=== PATIENT | male | born 1985 | race Caucasian/White ===

== ENCOUNTER 2025-01-21 10:41 | Emergency (ER) | payer OTHER, SELFPAY ==
[2025-01-21 10:45] VITALS: BP 133/92; PULSE 92; RESP 16; TEMP 36.4; O2SAT 98
--- OUTSIDE RECORDS SUMMARY | 2025-01-21 10:45 | XMS_ITS | Clinical Summary ---
Author Organization [facility] [address] [place] [id number] Care Team Providers Care Milker Machine Name Role Phone Bret Trammell DO Primary Care Provider [phone] Allergies Active Allergy Reactions Criticality Noted Date Comments Sulfa Sweating,Vomiting Low 12/30/2024 Medications ondansetron (ZOFRAN) 4 mg tablet Take 1 tablet (4 mg total) by mouth every 6 (six) hours 12 tablet 12/30/2024 Active senna-docusate (PERICOLACE) 8.6-50 mg Take 1 tablet by mouth daily 20 tablet 12/30/2024 Active polyethylene glycol (MIRALAX) 17 gram/dose bulk powder Take 17 g by mouth daily 238 g 12/30/2024 Active Encounters Date Type Department Care Team Description 12/30/2024 5:04 PM CDT - 12/30/2024 7:14 PM CDT Emergency [address] [address] Constipation, unspecified constipation type (Primary Dx) Discharge Disposition: Discharge to home or self care from Last 3 Months Social History Tobacco Use Types Packs/Day Years Used Date Smoking Tobacco: Never Assessed Personal Safety Answer Date Recorded Have you ever been in or are you currently in a harmful physical or emotional relationship or is someone making you feel afraid or unsafe? 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 Height 175.3 cm (5' 9) 12/30/2024 12:40 PM CDT Body Mass Index 20.67 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 Plan of Treatment Health Maintenance Due Date Last Done Comments Depression Screening 1985 Hepatitis C Screening 1985 DTaP/Tdap/Td Vaccine (1 - Tdap) 10/26/1994 Varicella Vaccines (1 of 2 - 13+ 2-dose series) 10/26/1996 Hepatitis B Screening 10/26/2001 Regular Well Visit/Exam 18-64 10/26/2001 Pneumococcal vaccine <65 (1 of 2 - PCV) 10/26/2002 Influenza Vaccine (Season Ended) 2025 HPV Vaccines Aged Out No longer eligi ble based on patient's age to complete this topic Procedures Procedure Name Priority Date/Time Associated Diagnosis Comments CT ABDOMEN PELVIS W CONTRAST ED 12/30/2024 2:30 PM CDT EGFR STAT 12/30/2024 1:13 PM CDT DIFFERENTIAL AUTO STAT 12/30/2024 1:1 3 PM CDT LIPASE STAT 12/30/2024 1:13 PM CDT COMPREHENSIVE METABOLIC PANEL STAT 12/30/2024 1:13 PM CDT CBC WITH AUTO DIFFERENTIAL STAT 12/30/2024 1:13 PM CDT from Last 3 Months Results * CT Abdomen Pelvis W Contrast (12/30/2024 2:30 PM CDT) Anatomical Region Laterality Modality Body N/A Computed Tomogra phy 12/30/2024 3:43 PM CDT Narrative 12/30/2024 4:00 PM CDT EXAM DESCRIPTION: CT ABDOMEN PELVIS W CONTRAST REASON FOR STUDY: Abdominal pain and bloating abdomen pain and bloating. Pt states his abdomen has been getting more distended. Last BM evening. No prior surgery TECHNIQUE: CT scan of the abdomen and pelvis performed with intravenous and without oral contrast using helical scanning technique with dynamic intravenous contrast injection. Reconstructed coronal and sagittal MPR images reviewed. All images stored on PACS. Automated exposure control was used as a dose optimization technique for this examination. CONTRAST TYPE/DOSE: 100mL of IOVERSOL 350 MG IODINE/ML INTRAVENOUS SYRINGE injected via intravenous COMPARISON: None available. FINDINGS: LOWER CHEST: No significant pulmonary abnormalities. No effusion. LIVER: Normal size. No identified cystic or solid masses. GALLBLADDER: PICC 1 BILE DUCTS: No intrahepatic or extrahepatic ductal dilatation. SPLEEN: Normal size. No focal lesions. PANCREAS: No identified cystic or solid masses. No significant calcifications. No adjacent inflammation or peripancreatic fluid collections. Pancreatic duct not dilated. ADRENALS: Normal. KIDNEYS/URINARY TRACT: No identified significant cystic or solid masses. Two 1-2 mm nonobstructing calculi at the inferior right renal pole.. No hydronephrosis or hydroureter. Symmetric enhancement. Urinary bladder is unremarkable. GI: No dilated bowel loops. No obvious wall thickening. Normal appendix. Moderate amount of stool volume is seen throughout the colon. Intact anastomotic suture line seen at the sigmoid colon region. No significant diverticular disease. PERITONEUM: No ascites or free air. RETROPERITONEUM: No mass or adenopathy. REPRODUCTIVE: No significant abnormality. VASCULATURE: No abdominal aortic aneurysm. MUSCULOSKELETAL: No acute abnormality. Mild multilevel degenerative changes of the spine. OTHER: No other abnormality. IMPRESSION: 1. No acute intra-abdominal/pelvic abnormality. Moderate colonic stool burden compatible with constipation 2. Nonobstructing right nephrolithiasis. THIS IS AN ELECTRONICALLY VERIFIED FINAL REPORT 12/30/2024 4:00 PM - Electronically signed by Reno Sunshine M.D. T: Report ID: [id number] Reading Location: [place] [address] Procedure Note Reno Sunshine, DO - 12/30/2024 EXAM DESCRIPTION: CT ABDOMEN PELVIS W CONTRAST REASON FOR STUDY: Abdominal pain and bloating abdomen pain and bloating. Pt states his abdomen has been getting more distended. Last BM evening. No prior surgery TECHNIQUE: CT scan of the abdomen and pelvis performed with intravenousand without oral contrast using helical scanning technique with dynamic intravenous contrast injection. Reconstructed coronal and sagittal MPRimages reviewed. All images stored on PACS. Automated exposure control was usedas a dose optimization technique for this examination. CONTRAST TYPE/DOSE: 100mL of IOVERSOL 350 MG IODINE/ML INTRAVENOUSSYRINGE injected via intravenous COMPARISON: None available. FINDINGS: LOWER CHEST: No significant pulmonary abnormalities. Noeffusion. LIVER: Normal size. No identified cystic or solid masses. GALLBLADDER: PICC 1 BILE DUCTS: No intrahepatic or extrahepatic ductal dilatation. SPLEEN: Normal size. No focal lesions. PANCREAS: No identified cystic or solid masses. No significant calcifications. No adjacent inflammation or peripancreatic fluidcollections. Pancreatic duct not dilated. ADRENALS: Normal. KIDNEYS/URINARY TRACT: No identified significant cystic or solid masses. Two 1-2 mm nonobstructing calculi at the inferior right renal pole.. No hydronephrosis or hydroureter. Symmetric enhancement. Urinary bladderis unremarkable. GI: No dilated bowel loops. No obvious wall thickening. Normalappendix. Moderate amount of stool volume is seen throughout the colon. Intact anastomotic suture line seen at the sigmoid colon region. No significant diverticular disease. PERITONEUM: No ascites or free air. RETROPERITONEUM: No mass or adenopathy. REPRODUCTIVE: No significant abnormality. VASCULATURE: No abdominal aortic aneurysm. MUSCULOSKELETAL: No acute abnormality. Mild multilevel degenerative changes of the spine. OTHER: No other abnormality. IMPRESSION: 1. No acute intra-abdominal/pelvic abnormality. Moderate colonic stool burden compatible with constipation 2. Nonobstructing right nephrolithiasis. THIS IS AN ELECTRONICALLY VERIFIED FINAL REPORT 12/30/2024 4:00 PM - Electronically signed by Reno Sunshine M.D. T: Report ID: [id number] Reading Location: [id number] PROCED[facility] Result * eGFR (12/30/2024 1:13 PM CDT) eGFR >90 >=60 mL/min/1. 73 m2 Comment: Interpretive Data Reference Interval Normal >/= 90 mL/min/1.73m2 Mildly decreased* 60 - 89 mL/min/1.73m2 Mildly to moderately decreased 45 - 59 mL/min/1.73m2 Moderately to severely decreased 30 - 44 mL/min/1.73m2 Severely decreased 15 - 29 mL/min/1.73m2 Kidney Failure < 15 mL/min/1.73m2 *Relative to young adult level Estimated glomerular filtration rate is determined by the 2020 CKD-EPI equation recommended by the National Kid[employer] (A Unifying Approach to GFR Estimation: Recommendations of the NKF-ASK Task Force on Reassessing the Inclusion of Race in Diagnosing Kidney Disease, JASN 2020). The CKD-EPI equation should not be used for patients with unstable renal function and has not been validated in children and those over 70. Current interpretive data was last reviewed 2021. Blood 12/30/2024 1:13 PM CDT 12/30/2024 1:16 PM CDT us Godfrey Pascal DO LAB BLOOD ORDERABLES Final Result [facility] [address] [facility] Department [place] [address] * Differential, auto (12/30/2024 1:13 PM CDT) [facility] Neutrophil abs 3.86 1.50 - 6.50 K/cumm Imm gran abs 0.00 0.00 - 0.10 K/cumm [facility] Lymphocyte abs 3.30 0.80 - 3.30 K/cumm [facility] Monocyte abs 0.57 0.20 - 0.80 K/cumm [facility] Eosinophil abs 0.28 0.00 - 0.50 K/cumm [facility] Basophil abs 0.06 0.00 - 0.10 K/cumm [facility] Neutrophil pct 47.8 % [facility] Comment: Interpretive Data Percent cell count reference ranges are not reported, since discordance with absolute values may lead to misinterpretation of CBC data. Current Interpretive Data was last revised on 2017. Imm gran pct 0.0 % [facility] Comment: Interpretive Data Percent cell count reference ranges are not reported, since discordance with absolute values may lead to misinterpretation of CBC data. Current Interpretive Data was last revised on 2017. Lymphocyte pct 40.9 % [facility] Comment: Interpretive Data Percent cell count reference ranges are not reported, since discordance with absolute values may lead to misinterpretation of CBC data. Current Interpretive Data was last revised on 2017. Monocyte pct 7.1 % [facility] Comment: Interpretive Data Percent cell count reference ranges are not reported, since discordance with absolute values may lead to misinterpretation of CBC data. Current Interpretive Data was last revised on 2017. Eosinophil pct 3.5 % [facility] Comment: Interpretive Data Percent cell count reference ranges are not reported, since discordance with absolute values may lead to misinterpretation of CBC data. Current Interpretive Data was last revised on 2017. Basophil pct 0.7 % [facility] Comment: Interpretive Data Percent cell count reference ranges are not reported, since discordance with absolute values may lead to misinterpretation of CBC data. Current Interpretive Data was last revised on 2017. Blood 12/30/2024 1:13 PM CDT 12/30/2024 1:16 PM CDT us Godfrey Pascal DO LAB BLOOD ORDERABLES Final Result [facility] [address] [facility] Department of Laboratories [place], [place] [id number] * (ABNORMAL) CBC with auto differential (12/30/2024 1:13 PM CDT) WBC 8.07 3.80 - 9.90 K/cumm Hgb 13.8 13.0 - 17.5 g/dL [facility] Hct 42.6 38.9 - 50.3 % [facility] Plt 309 150 - 400 K/cumm [facility] MPV 9.7 9.1 - 12.3 fL [facility] RBC 5.19 4.30 - 5.80 M/cumm [facility] MCV 82.1 81.3 - 96.4 fL [facility] MCH 26.6(L) 27.1 - 33.3 pg [facility] MCHC 32.4 32.3 - 35.7 g/dL [facility] RDW CV 15.0(H) 11.1 - 14.9 % [facility] RDW SD 45.0 35.7 - 48.1 fL [facility] NRBC abs 0.00 0.00 - 0.01 K/cumm [facility] Blood Venous blood specimen / Unknown 12/30/2024 1:13 PM CDT 12/30/2024 1:16 PM CDT Godfrey Pascal LAB BLOOD ORDERABLES Final Result Performing Organization Address [facility] Co de Phone Number [address] [place] [address] * Lipase (12/30/2024 1:13 PM CDT) [facility] Lipase 46 10 - 99 Units/L Blood Venous blood specimen / Unknown 12/30/2024 1:13 PM CDT 12/30/2024 1:16 PM CDT Godfrey Pascal LAB BLOOD ORDERABLES Final Result Performing Organization Address [facility] Phone Number [address] [employer] [place] [address] * (ABNORMAL) Comprehensive metabolic panel (12/30/2024 1:13 PM CDT) [facility] Sodium 136 135 - 145 mmol/L Potassium, pl 4.3 3.3 - 4.9 mmol/L [facility] Comment:Hemolyzed; Potassium value may be falsely elevated by as much as 1.0 mmol/L. Suggest redraw and reanalysis. Chloride 100 97 - 110 mmol/L [facility] CO2 27 22 - 32 mmol/L [facility] Anion gap 9 2 - 15 mmol/L [facility] BUN 12 6 - 25 mg/dL [facility] Creatinine 0.68(L) 0.80 - 1.30 mg/dL [facility] Glucose 95 70 - 199 mg/dL [facility] Comment: Interpretive Data Fasting glucose >/= 126 mg/dl is diagnostic for diabetes. Fasting is defined as no caloric intake for at least 8 hours. Fasting glucose between 100 mg/dl to 125 mg/dl is diagnostic of prediabetes. In a patient with classic symptoms of hyperglycemia or hyperglycemic crisis, a random glucose >/= 200 mg/dl is diagnostic for diabetes. In the absence of unequivocal hyperglycemia, results should be confirmed by repeat testing. The classification and Diagnosis of Diabetes Diabetes Care 202; 46: S19-S40. Current interpretive data was last revised 2022. Calcium 9.3 8.5 - 10.3 mg/dL [facility] Bilirubin, total 0.2 0.1 - 1.2 mg/dL [facility] Protein, pl 7.1 6.5 - 8.5 g/dL [facility] Albumin 4.2 3.5 - 5.0 g/dL [facility] Alk phos 92 40 - 130 Units/L [facility] ALT 14 7 - 55 Units/L [facility] AST 23 10 - 50 Units/L [facility] Blood 12/30/2024 1:13 PM CDT 12/30/2024 1:16 PM CDT Godfrey Pascal DO LAB BLOOD ORDERABLES Final Result Performing Organization Address City/State/[facility] Co de Phone Number [facility] [address] [facility] Department [place] [address] from Last [address] [place] [place] [address] [place] [address] Care Teams Milker Machine Relationship Specialty Start Date End Date Bret Trammell DO [address] [place] [address] PCP - General Family Medicine 12/30/24
--- OUTSIDE RECORDS SUMMARY | 2025-01-21 10:45 | XMS_ITS | Clinical Summary ---
Author Organization [facility] [employer] Address [address] [place] [address] Care Team Providers Care Set Key Driver Name Role Phone RachidMaryam pittman Acacia GONZALEZ-SALES SECRETARY Primary Care Provider [phone] Source Comments [facility] [employer],non-owned Affiliates and Associated Physician Practices is amultiple site organization consisting of ambulatory clinics and hospital sitesin [place], [place], [place] and [place]. This disclosure is being madepursuant to the Care Everywhere program and may not contain all information available regarding this patient. Last updated 18.[facility] [employer] Allergies Active Allergy Reactions Criticality Noted Date Comments Fluoxetine Nausea and/or Vomiting 01/03/2013 Sulfa Drugs Anaphylaxis,Urticaria High 03/19/2017 Tramadol Seizures 09/30/2015 Medications * This document contains information received from the source organization and may not represent a complete record from that organization. * Be aware that medications may not be up to date on this document. Alwaysverify current medications with the patient. buprenorphine-na loxone (Suboxone Film) 8-2 MG stripIndications :Opioid Dependence,pt has 13 days in home supply Dissolve 1 (one) strip under the tongue 3 times daily Active albuterol HFA (Proventil; Ventolin; Proair) 108 (90 Base) MCG/ACT inhalerIndicatio ns:Bronchospasm Inhale 2 (two) puffs by mouth every 4 hours as needed for Shortness of Breath, Wheezing or Cough 18 g 4 Active Anoro Ellipta 62.5-25 MCG/ACT inhalerIndicatio ns:Chronic Obstructive Pulmonary Disease Inhale 1 (one) puff by mouth once daily 4 Active gabapentin (Neurontin) 800 MG tabletIndication s:Generalized Anxiety Disorder,Periphe ral Neuropathy,Restl ess Leg Syndrome Take 1 (one) tablet by mouth 3 times daily for 30 days Reasons: Generalized Anxiety Disorder, Peripheral Nerve Disease, Restless Leg Syndrome 90 tablet 5 Active levETIRAcetam (Keppra) 1000 MG tabletIndication s:Seizure Take 1 (one) tablet by mouth 2 times daily for 30 days Reasons: Seizure 60 tablet 5 Active OLANZapine (ZyPREXA) 10 MG tabletIndication s:Major Depressive Disorder Take 1 (one) tablet by mouth at bedtime for 30 days Reasons: Major Depressive Disorder 30 tablet 5 Active furosemide (Lasix) 40 MG tabletIndication s:Hypertension Take 1 (one) tablet by mouth 2 times daily for 30 days Reasons: High Blood Pressure 60 tablet 5 Active tamsulosin (Flomax) 0.4 MG capsuleIndicatio ns:Bladder Dysfunction Take 1 (one) capsule by mouth every evening for 30 days Reasons: Dysfunction of the Urinary Bladder 30 capsule 5 Active Active Problems Problem Noted Date Diagnosed Date Cannabis use disorder, severe, dependence 2024 Overview (07/19/2024): >>OVERVIEW FOR SUBSTANCE ABUSE (HCC) WRITTEN ON 10/29/2014 8:10 AM BY RAUL PARHAM MD Alcohol, street benzos, K-2, meth, stimulants, opiates, Fentanyl patches and whatever else he can get Severe benzodiazepine use disorder 07/19/2024 Perianal wart 07/19/2024 Urinary tract infection without hematuria 2024 Tobacco use disorder 07/19/2024 Seizure disorder 07/19/2024 Asthma 12/16/2023 Aspiration pneumonia of both lungs due to gastric secretions 11/23/2023 Acute hypoxic respiratory failure 11/23/2023 Benign essential hypertension 09/04/2022 Flank pain 05/29/2020 Prostate abscess 05/29/2020 Protein-calorie malnutrition, moderate 0 Encounter for medication refill 12/12/2019 Cellulitis of left upper extremity 11/21/2019 Opioid use disorder, severe, on maintenance ther apy 11/21/2019 Left against medical advice 11/21/2019 Methamphetamine use disorder, severe 10/17/2019 Cellulitis of right lower extremity 11/13/2018 Unspecified mood (affective) disorder 05/29/2018 Overview (07/19/2024): >>OVERVIEW FOR RECURRENT MAJOR DEPRESSIVE DISORDER (HCC) WRITTEN ON 10/29/2014 8:10 AM BY RAUL PARHAM MD secondary to chronic drug abuse Rectal trauma 06/09/2015 Hepatitis C Cluster B personality disorder Non-compliance with treatment Accidental drug overdose Overview (10/29/2014): usually illicit drugs (4 times in October, alone) Severe episode of recurrent major depressive disorder, without psychotic features Overview (07/24/2024): secondary to chronic drug abuse Resolved Problems Problem Noted Date Diagnosed Date Resolved Date Pneumonia 12/24/2023 08/16/2024 Accidental overdose of heroin 11/21/2023 07/19/2024 Suicidal ideation 06/09/2020 06/11/2020 Depression 06/09/2020 06/11/2020 Depression with suicidal ideation 10/17/2019 10/19/2019 Suicidal ideation 07/09/2019 07/13/2019 Immunizations Immunization Administration Dates Next Due INFLUENZA VACCINE 08/08/2013 INFLUENZA VACCINE, QUADR. (F LUZONE; FLULAVAL; FLUARIX; AFLURIA QUADRIVALENT; 6MO+), 0.5 ML (IIV4) 10/18/2019 INFLUENZA VACCINE, TRIV. (FL UZONE; FLULAVAL; FLUARIX; AFLURIA TRIVALENT; 6MO+), 0.5 ML (IIV3) 07/29/2024 PNEUMOCOCCAL PPSV23 11/03/2014 Family History Medical History Relation Name Comments Drug Abuse Brother 1 Twin brother Mental Illness Brother 2 Alcohol abuse Father 76 Alzheimer's Disease Father 76 Depression Mother Relation Name Status Comments Brother 1 Alive Brother 2 Alive Brother 3 Alive In senior living at [facility] (07/25) Brother 4 Alive Father 76 Mother Alive Sister 1 Alive Sister 2 Alive Sister 3 Alive Social History Tobacco Use Types Packs/Day Years Used Date Smoking Tobacco: Every Day Cigarettes 1 25 Smokeless Tobacco: Never Tobacco Cessation:Ready to Q uit: Not Asked; Counseling Given: Not Answered Alcohol Use Standard Drinks/Week Comments No 0 (1 standard drink = 0.6 oz pur e alcohol) AUDIT-C Answer Date Recorded Q1: How often do you have a drink containing alcohol? Never 07/19/2024 Q2: How many drinks containi ng alcohol do you have on a typical day when you are drinking? Patient does not drink Q3: How often do you have si x or more drinks on one occasion? Never 07/19/2024 Overall Financial Resource Strain (CARDIA) Answe r Date Recorded How hard is it for you to pa y for the very basics like food, housing, medical care, and heating? Very hard 07/19/2024 PHQ-2 Answer Date Recorded Patient Health Questionnaire-2 Score 6 07/19/2024 [facility] - Occupational Stress Questionnaire Answer Date Recorded Do you feel stress - tense, restless, nervous, or anxious, or unable to sleep at night because your mind is troubled all the time - these days? Very much 07/19/2024 Hunger Vital Sign Answer Date Recorded Within the past 12 months, y ou worried that your food would run out before you got the money to buy more. Often true 07/19/19 25 Within the past 12 months, t he food you bought just didn't last and you didn't have money to get more. Often true 07/19/2024 PRAPARE - Transportation Answer Date Re corded In the past 12 months, has l ack of transportation kept you from medical appointments or from getting medications? Yes 02/2025 In the past 12 months, has l ack of transportation kept you from meetings, work, or from getting things needed for daily living? Yes 07/19/2024 Housing Stability Vital Sign Answer Sam e Recorded In the last 12 months, was t here a time when you were not able to pay the mortgage or rent on time? Yes 07/19/2024 In the past 12 months, how m any times have you moved where you were living? 2 07/19/2024 At any time in the past 12 m [facility], were you homeless or living in a retirement (including now)? Yes 07/19/2024 Sex and Gender Information Value Date Recorded Sex Assigned at Not on file Legal Sex Male 5:38 AM MACHINE ROOM ENGINEER Gender Identity Not on file Sexual Orientation Not on file Occupation Industry Job Start Date Job End Date Unemployed Not on file Not on file Not on file Last Filed Vital Signs Vital Sign Reading Time Taken Comments Blood Pressure 109/66 07/31/2024 7:26 AM MACHINE ROOM ENGINEER Pulse 71 07/31/2024 8:12 AM MACHINE ROOM ENGINEER Temperature 36.5 C (97.7 F) 07/31/2024 7:26 AM MACHINE ROOM ENGINEER Respiratory Rate 18 07/31/2024 8:12 AM MACHINE ROOM ENGINEER Oxygen Saturation 99% 07/31/2024 8:12 AM MACHINE ROOM ENGINEER Inhaled Oxygen Concentration 21% 07/30/2024 8 :22 PM MACHINE ROOM ENGINEER Weight 88.5 kg (195 lb) 07/19/2024 3:03 PM MACHINE ROOM ENGINEER Height 175.3 cm (5' 9) 07/19/2024 3:03 PM MACHINE ROOM ENGINEER Body Mass Index 28.8 07/19/2024 3:03 PM MACHINE ROOM ENGINEER Plan of Treatment Health Maintenance Due Date Last Done Comments DTAP/TDAP/TD VACCINES (1 - Tdap) 10/26/2002 HEPATITIS B VACCINE (1 of 3 - 19+ 3-dose series) 10/26/2002 HPV VACCINE (1 - 3-dose SCDM series) 10/26/2010 PNEUMOCOCCAL VACCINE (2 of 2 - PCV) 11/04/2015 11/03/2014 COVID-19 VACCINE (1 - 2023- season) 2024 DEPRESSION SCREENING 07/12/2024 06/18/2024, 04/17/2024, 04/17/2024, Additional history exists INFLUENZA VACCINE (#1) 2025 , 10/18/2019, 06/14/2015, Additional history exists SCREENING FOR DIABETES 07/21/2027 , 07/20/2024, 07/19/2024, Additional history exists LIPID TESTING 07/21/2029 07/21/2024, 04/0 03/2020, 02/21/2014 ZOSTER VACCINE (1 of 2) 10/26/2033 HIV SCREENING Completed 01/02/2024, 11/09, 09/09/2023, Additional history exists HEPATITIS C SCREENING Completed 07/19/2024 , 07/19/2024, 09/08/2022, Additional history exists HIB VACCINE Aged Out No longer eligi ble based on patient's age to complete this topic MENINGOCOCCAL (Group B) VACCINE SHARED DECISION-MAKING Aged Out No longer eligible based on patient's age to complete this topic MENINGOCOCCAL GROUPS A/C/Y/W VACCINE Aged Out No longer eligible based on patient's age to complete this topic Procedures Procedure Name Priority Date/Time Associated Diagnosis Comments HEMOGLOBIN A1C Routine 07/21/2024 6:13 AM MACHINE ROOM ENGINEER LIPID PROFILE Routine 07/21/2024 6:13 AM MACHINE ROOM ENGINEER HEPATITIS SCREEN ACUTE STAT 07/19/2024 10:09 AM MACHINE ROOM ENGINEER HIV-1 HIV-2 ANTIBODY + HIV P24 AG PANEL Routine 02/03/2022 10:55 AM CDT Chronic hepatitis C without hepatic coma from Last 3 Months or Most Recently Relevant to Health Maintenance Results * HEMOGLOBIN A1C (07/21/2024 6:13 AM MACHINE ROOM ENGINEER) [facility] Hemoglobin A1c 5.5 4.2 - 5.6 % 07/21/2024 6:34 AM MACHINE ROOM ENGINEER [facility] Estimated Average Glucose 111 mg/dL 07/21/2024 6:34 AM [facility] Blood BLOOD SPECIMEN / Unknown Lab Venipuncture / Unknown 07/21/2024 6:13 AM MACHINE ROOM ENGINEER 07/21/2024 6:16 AM MACHINE ROOM ENGINEER Narrative [facility] - 07/21/2024 6:34 AM MACHINE ROOM ENGINEER HbA1c Interpretation: Normal: < 5.7% Pre-diabetes: 5.7-6.4% Diabetes: Equal to or greater than 6.5% Test results diagnostic of diabetes should be repeated for confirmation. Treatment target values recommended by ADA and other clinical organizations should be used to evaluate metabolic control in patients. This test should not replace glucose testing for patients with Type 1 diabetes, pediatric patients, or women. Falsely low HbA1c results may be observed in patients with clinical conditions that shorten erythrocyte life span or decrease mean erythrocyte age such as the presence of unstable hemoglobin variants, elevated hemoglobin F level or other causes of hemolytic anemia. HbA1c may not accurately reflect glycemic control when clinical conditions that affect erythrocyte survival are present. Severe Iron deficiency anemia may yield falsely high results. Hemoglobin A1c assay should not be used to diagnose or monitor diabetes in patients with malignancy, recent blood transfusion, chronic kidney or liver disease. This method may yield falsely low results when hemoglobin (HbF) exceeds 5% in the specimen. The Cassidy Alinity assay for the measurement of HbA1c is a National Glycohemoglobin Standardization Program (NGSP) certified method. Kemar Herrera GEOSPATIAL APPLICATIONS DEVELOPER-SALES SECRETARY LAB - CHEMISTRY ORDERAB LES Final Result [facility] [address] * (ABNORMAL) LIPID PROFILE (07/21/2024 6:13 AM [facility]) [facility] Cholesterol 130 <200 mg/dL 07/23/2024 12:47 AM [facility] Triglycerides 138 <150 mg/dL 07/23/2024 12:47 AM [facility] HDL Cholesterol 27(L) >40 mg/dL 12:47 AM [facility] Chol HDL Ratio 4.8 1.0 - 6.0 07/23/2024 12:47 AM [facility] LDL Calculated 75 65 - 130 mg/dL 07/23/2024 12:47 AM [facility] VLDL Calculated 28 <=30 mg/dL 12:47 AM [facility] Blood BLOOD SPECIMEN / Unknown Lab Venipuncture / Unknown 07/21/2024 6:13 AM MACHINE ROOM ENGINEER 07/23/2024 12:33 AM [facility] - 07/23/2024 12:47 AM [facility] Lipid Profile Comment: CHOLESTEROL LEVEL..................CLINICAL INTERPRETATION LESS THAN 200 MG/DL..............................DESIRABLE 200-239 MG/DL..............................BORDERLINE HIGH GREATER THAN 240 MG/DL................................HIGH LDL-CHOLESTEROL LEVEL..............CLINICAL INTERPRETATION LESS THAN 100 MG/DL................................OPTIMAL 100-129 MG/DL.................................NEAR OPTIMAL GREATER THAN 160 MG/DL...........................HIGH RISK HDL RISK LEVEL GREATER THEN 60 MG/DL............................DECREASED 40-60 MG/DL........................................AVERAGE LESS THAN 40 MG/DL...............................INCREASED TRIGLYCERIDE LEVEL..................CLINICAL INTERPRETATION LESS THAN 150 MG/DL...............................DESIRABLE 150-199 MG/DL...............................BORDERLINE HIGH 200-499 MG/DL..........................................HIGH GREATER THAN 500..................................VERY HIGH THE NATIONAL CHOLESTEROL EDUCATION PROGRAM HAS SET THE ABOVE GUIDELINES (REFERANCE VALUES) FOR CHOLESTEROL AND HDL. RISK ASSOCIATED WITH CHOLESTEROL/HDL RATIOS RISK....................MALE RATIO.............FEMALE RATIO 1/2 AVERAGE.................<3.4.......................<3.3 LOW RISK.................... 4.0 ...................... 3.8 AVERAGE..................... 5.0 ...................... 4.5 2X AVERAGE.................. 9.5 ...................... 7.0 3X AVERAGE...................>23........................>11 Kemar Herrera GEOSPATIAL APPLICATIONS DEVELOPER-SALES SECRETARY LAB - CHEMISTRY ORDERAB LES Final Result [facility] [address] * (ABNORMAL) HEPATITIS SCREEN ACUTE (07/19/2024 10:09 AM MACHINE ROOM ENGINEER) HAV Antibody IgM Non Reactive Non Reactive 07/19/2024 3:21 PM MACHINE ROOM ENGINEER [facility] HBsAg Non Reactive Non Reactive 07/19/2024 3:21 PM [facility] HBc Antibody IgM Non Reactive Non Reactive 07/19/2024 3:21 PM MACHINE ROOM ENGINEER [facility] HCV Antibody Screen REACTIVE(A) Non Reactive 07/19/2024 3:21 PM [facility] Comment:rechecked Blood BLOOD SPECIMEN / Unknown Venipuncture / Unknown 07/19/2024 10:09 AM MACHINE ROOM ENGINEER 07/19/2024 10:37 AM MACHINE ROOM ENGINEER [facility] - 07/19/2024 3:21 PM MACHINE ROOM ENGINEER A reactive result is consistent with current HCV infection or past HCV infection that has been resolved. Reflex testing to Hepatitis C Virus RNA Quantitative, Real Time PCR will be performed. See separate report. A reactive result is consistent with current HCV infection or past HCV infection that has been resolved. Reflex testing to Hepatitis C Virus RNA Quantitative, Real Time PCR will be performed. See separate report. A reactive result is consistent with current HCV infection or past HCV infection that has been resolved. Reflex testing to Hepatitis C Virus RNA Quantitative, Real Time PCR will be performed. See separate report. Isidro Silva MD LAB - CHEMISTRY ORDERABLES Final Result Performing Organization Address [facility] de Phone Number [facility] [address] * HIV-1 HIV-2 ANTIBODY + HIV P24 AG PANEL (02/03/2022 10:55 AM CDT) HIV1/2 Ab + P24 Ag NON-REACTI VE/NEGATIV E NON-REACTI VE/NEGATIV E 02/03/2022 11:46 AM CDT [facility] Blood BLOOD SPECIMEN / Unknown Venipuncture / Unknown 02/03/2022 10:55 AM CDT 02/03/2022 11:02 AM CDT Shay Cortés MD LAB - CHEMISTRY ORDERABLES Final Result Performing Organization Address [facility] de Phone Number [facility] [address] from Last 3 Months or Most Recently Relevant to Health Maintenance Additional Health Concerns 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/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 Comment:201707/24/2024 07/24/2024 Insurance * Guarantor: KERLINE WARD Account Type Relation to Patient Date of Phone Billing Address Personal/Family 1985 [address] [facility] Advance Directives Documents on File Type Date Recorded Patient Electronic Page Makeup System Operator Expl anation Adv Directive/Living Will/POA 11/06/2014 10:28 AM adv dir Adv Directive/Living Will/POA 10/31/2014 9:21 AM adv dir * Full Code (Latest Code Status on File) Date Activated Date Inactivated Comments 07/19/2024 3:15 PM 07/31/2024 9:53 AM * Full Code Date Activated Date Inactivated Comments 06/09/2020 7:38 PM 06/11/2020 1:57 PM * Full Code Date Activated Date Inactivated Comments 10/17/2019 3:07 AM 10/19/2019 1:32 PM * Full Code Date Activated Date Inactivated Comments 07/10/2019 11:22 AM 07/13/2019 12:40 PM * Full Code Date Activated Date Inactivated Comments 07/09/2019 8:49 PM 07/10/2019 11:22 AM Care Teams Set Key Driver Relationship Specialty Start Date End Date Maryam Nelson, GEOSPATIAL APPLICATIONS DEVELOPER-SALES SECRETARY [address] [place] [address] PCP - General Nurse Practitioner 03/06/24
--- OUTSIDE RECORDS SUMMARY | 2025-01-21 10:45 | XMS_ITS | Clinical Summary ---
Author Organization [facility] Address [address] [place] [phone] Phone Care Team Providers Care Account Resolution Analyst Name Role Phone Provider, None Primary Care Provider Unavailabl e Allergies Active Allergy Reactions Criticality Noted Date Comments Sulfa Antibiotics Unknown 11/21/2023 Medications methadone 5 MG/5ML Solution Take by mouth daily. Active clonazePAM (KlonoPIN) 1 MG Tablet Take 1 mg by mouth 4 times daily. Active LevETIRAcetam (Keppra) 1000 MG Tablet Take 1,000 mg by mouth 2 times daily. Active furosemide (LASIX) 40 MG Tablet Take 40 mg by mouth daily. Active QUEtiapine (SEROquel) 100 MG Tablet Take 100 mg by mouth nightly. Active QUEtiapine (SEROquel) 25 MG Tablet Take 25 mg by mouth 2 times daily as needed. Active hydrOXYzine (ATARAX) 25 MG Tablet Take 1 Tablet by mouth every 8 hours as needed for Itching. 90 Tablet 11/29/2023 Active gabapentin (NEURONTIN) 300 MG Capsule Take 3 Capsules by mouth 2 times daily. 30 Capsule 11/29/2023 Active Active Problems Problem Noted Date Diagnosed Date Acute hypoxic respiratory failure 11/23/2023 Aspiration pneumonia of both lungs due to gastric secretions 11/23/2023 Accidental overdose of heroin, initial encounter 11/21/2023 Resolved Problems Problem Noted Date Diagnosed Date Resolved Date Sepsis due to Farzana specie s with acute hypoxic respiratory failure and septic shock 11/23/2023 11/23/2023 Social History Tobacco Use Types Packs/Day Years Used Date Smoking Tobacco: Every Day Cigarettes Smokeless Tobacco: Never Alcohol Use Standard Drinks/Week Comments Not Currently 0 (1 standard drink = 0.6 oz pur e alcohol) [facility] Utilities Answer Date Recorded In the past 12 months has e electric, gas, oil, or water company threatened to shut off services in your home? No 11/22/2023 Social Connection and Isolation Panel Answer Date Recorded In a typical week, how many times do you talk on the phone with family, friends, or neighbors? More than three times a week 11/22/2023 Frequency of Social Gatherin gs with Friends and Family Not on file 11/22/2023 How often do you attend chur ch or pentecostalism services? More than 4 times per year 11/22/2023 Do you belong to any clubs o r organizations such as hinduism groups, unions, fraternal or athletic groups, or school groups? Yes 11/22/2023 How often do you attend meet ings of the clubs or organizations you belong to? More than 4 times per year 11/22/2023 Are you , , di vorced, , never , or living with a partner? Never 11/22/2023 AUDIT-C Answer Date Recorded Q1: How often do you have a drink containing alcohol? Never 11/22/2023 Q2: How many drinks containi ng alcohol do you have on a typical day when you are drinking? Patient does not drink Q3: How often do you have si x or more drinks on one occasion? Never 11/22/2023 Overall Financial Resource Strain (CARDIA) Answe r Date Recorded How hard is it for you to pa y for the very basics like food, housing, medical care, and heating? Hard 11/22/2023 [facility] - Occupational Stress Questionnaire Answer Date Recorded Do you feel stress - tense, restless, nervous, or anxious, or unable to sleep at night because your mind is troubled all the time - these days? Very much 11/22/2023 Exercise Vital Sign Answer Date Recorde d On average, how many days pe r week do you engage in moderate to strenuous exercise (like a brisk walk)? 7 days 11/22/2023 On average, how many minutes do you engage in exercise at this level? 80 min 11/22/2023 Hunger Vital Sign Answer Date Recorded Within the past 12 months, y ou worried that your food would run out before you got the money to buy more. Often true Within the past 12 months, t he food you bought just didn't last and you didn't have money to get more. Sometimes true PRAPARE - Transportation Answer Date Re corded In the past 12 months, has l ack of transportation kept you from medical appointments or from getting medications? Yes 11/09 In the past 12 months, has l ack of transportation kept you from meetings, work, or from getting things needed for daily living? Yes 11/22/2023 Housing Stability Vital Sign Answer Sam e Recorded In the last 12 months, was t here a time when you were not able to pay the mortgage or rent on time? No 11/22/2023 In the last 12 months, how many places have you lived? 1 11/22/2023 In the last 12 months, was t here a time when you did not have a steady place to sleep or slept in a skilled nursing (including now)? Yes 11/22/2023 Sexually Active Control Partners Comments Not Currently Sex and Gender Information Value Date Recorded Sex Assigned at Male 11/21/2023 9:31 PM CDT Legal Sex Male 9:07 PM CDT Gender Identity Not on file Sexual Orientation Not on file Last Filed Vital Signs Vital Sign Reading Time Taken Comments Blood Pressure 104/74 11/29/2023 5:11 AM CDT Pulse 88 11/29/2023 5:11 AM CDT Temperature 36.2 C (97.2 F) 11/29/2023 5:11 AM CDT Respiratory Rate 18 11/29/2023 5:11 AM CDT Oxygen Saturation 98% 11/29/2023 8:00 AM CDT Inhaled Oxygen Concentration - - Weight 104.3 kg (230 lb) 11/22/2023 2:00 AM CDT Height 175.3 cm (5' 9) 11/22/2023 2:00 AM CDT Body Mass Index 33.97 11/22/2023 2:00 AM CDT Plan of Treatment Health Maintenance Due Date Last Done Comments Hepatitis C Virus (HCV) Screening 1983 TdaP Immunization 1983 Human Papillomavirus (HPV) Immunization (1 - Male 3-dose series) 10/26/1998 Hepatitis B Immunization (1 of 3 - 19+ 3-dose series) 10/26/2002 Pneumococcal Immunization Combined (2 of 2 - PCV) 11/04/2015 11/03/2014 SARS-COV-2 Immunization (1 - 2023- season) 2024 Influenza Immunization (#1) 2025 04/02/2020, 08/08/2013 Respiratory Syncytial Virus (RSV) Immunization (Adult) (1 - 1-dose 75+ series) 10/26/2058 Meningococcal Immunization (ACWY) Aged Out No longer eligible b ased on patient's age to complete this topic Rotavirus Immunization Aged Out No lo nger eligible based on patient's age to complete this topic [place] [address] Advance Directives * Full Code (Latest Code Status on File) Date Activated Date Inactivated Comments 11/21/2023 11:35 PM 11/29/2023 12:30 PM CPR-Full T reatment: FULL ARREST: Attempt Resuscitation/CPR wit intubation and mechanical ventilation. PRE-ARREST: Use entire range of life support measures to stabilize the patient. Care Teams Account Resolution Analyst Relationship Specialty Start Date End Date Provider, None [place] PCP - General 11/21/23
--- OUTSIDE RECORDS SUMMARY | 2025-01-21 10:45 | XMS_ITS | Clinical Summary ---
Author Organization [facility] Address [address] [place] [address] Phone Care Team Providers Care Emotional Disabilities Teacher Name Role Phone Unavailable Primary Care Provider Unavailabl e Allergies No known active allergies Medications OLANZapine (ZyPREXA ZYDIS) 10 mg Tablet, Rapid Dissolve Place 10 mg inside cheek daily at bedtime. Has not had in 1.5 weeks Active bupropion HCl (WELLBUTRIN ORAL) Take 150 mg by mouth 2 times daily. Had not had in 1.5 weeks Active Active Problems Problem Noted Date Diagnosed Date Protein-calorie malnutrition, moderate 0 Prostate abscess Urinary tract infection without hematuria Bacteremia Family History Medical History Relation Name Comments Healthy Father Healthy Mother Relation Name Status Comments Father Mother Social History Tobacco Use Types Packs/Day Years Used Date Smoking Tobacco: Every Day Cigarettes Smokeless Tobacco: Never Alcohol Use Standard Drinks/Week Comments Not Currently 0 (1 standard drink = 0.6 oz pur e alcohol) Sex and Gender Information Value Date Recorded Sex Assigned at Not on file Legal Sex Male 9:03 AM VOLTAGE TESTER Gender Identity Not on file Sexual Orientation Not on file Last Filed Vital Signs Vital Sign Reading Time Taken Comments Blood Pressure 111/49 05/28/2020 7:40 AM VOLTAGE TESTER Pulse 68 05/28/2020 7:40 AM VOLTAGE TESTER Temperature 36.4 C (97.6 F) 05/28/2020 7:40 AM VOLTAGE TESTER Respiratory Rate 16 05/28/2020 7:40 AM VOLTAGE TESTER Oxygen Saturation 99% 05/28/2020 7:40 AM VOLTAGE TESTER Inhaled Oxygen Concentration - - Weight 88.7 kg (195 lb 8 oz) 05/28/2020 1:30 AM VOLTAGE TESTER Height 175.3 cm (5' 9) 05/22/2020 9:08 AM VOLTAGE TESTER Body Mass Index 28.87 05/22/2020 9:08 AM VOLTAGE TESTER Plan of Treatment Health Maintenance Due Date Last Done Comments DTAP/TDAP/TD VACCINES (1 - Tdap) 10/26/2002 HEPATITIS B VACCINES (1 of 3 - 19+ 3-dose series) 10/26/2002 INFLUENZA VACCINE (#1) 2025 10/18/2019 HPV VACCINES Aged Out No longer eligi ble based on patient's age to complete this topic Insurance Advance Directives For more information, please contact: [phone] * Full Code (Latest Code Status on File) Date Activated Date Inactivated Comments 05/22/2020 2:24 PM 05/28/2020 5:52 PM
--- OUTSIDE RECORDS SUMMARY | 2025-01-21 10:45 | XMS_ITS | Referral Summary ---
Author Organization [facility] [address] [place] [id number] Care Team Providers Care Allied Health Instructor Name Role Phone Bret Trammell DO Primary Care Provider [phone] Encounters Date Type Department Care Team Description 12/30/2024 5:04 PM CDT - 12/30/2024 7:14 PM CDT Emergency [address] [address] Constipation, unspecified constipation type (Primary Dx) Discharge Disposition: Discharge to home or self care from Last 3 Months Allergies Active Allergy Reactions Criticality Noted Date [...] by mouth daily 238 g 12/30/2024 Active Social History Tobacco Use Types Packs/Day Years Used Date Smoking Tobacco: Never Assessed Personal Safety Answer Date Recorded Have you ever been in or are you currently in a harmful physical or emotional relationship or is someone making you feel afraid or unsafe? Denies 12/30/2024 Sex and Gender Information Value Date Recorded Sex Assigned at Not on file Legal Sex Male 1:51 PM HANDLING TECH Gender Identity Not on file Sexual Orientation [...] 63.5 kg (140 lb) 08/13/2014 10:09 AM HANDLING TECH Height 175.3 cm (5' 9) 12/30/2024 12:40 PM CDT Body Mass Index 20.67 08/13/2014 10:09 AM HANDLING TECH Plan of Treatment Not on file Procedures Procedure Name Priority Date/Time Associated Diagnosis [...] by Reno Sunshine M.D. T: Report ID: [id number] Reading Location: [place] [address] Procedure Note Reno Sunshine, - 12/30/2024 EXAM DESCRIPTION: CT ABDOMEN PELVIS [...] by Reno Sunshine M.D. T: Report ID: [id number] Reading Location: [place] [address] PROCEDURES [facility] [...] of Race in Diagnosing Kidney Disease, JASN 202). The CKD-EPI equation should not be used for patients with unstable renal function and has not been validated in children and those over 70. Current interpretive data was last reviewed 2021. Blood 12/30/2024 1:13 PM CDT 12/30/2024 1:16 PM CDT us Godfrey Pascal DO LAB BLOOD ORDERABLES Final Result [place] [address] [facility] [place] [address] * Differential, auto (12/30/2024 1:13 PM CDT) Neutrophil abs 3.86 1.50 - 6.50 K/cumm Imm gran abs 0.00 0.00 - 0.10 K/cumm [facility] Lymphocyte abs 3.30 0.80 - 3.30 K/cumm [facility] Monocyte abs 0.57 0.20 - 0.80 K/cumm [facility] Eosinophil abs 0.28 0.00 - 0.50 K/cumm [facility] Basophil abs 0.06 0.00 - 0.10 K/cumm [facility] Neutrophil pct 47.8 % [facility] Comment: Interpretive Data Percent cell count reference ranges are not reported, since discordance with absolute values may lead to misinterpretation of CBC data. Current Interpretive Data was last revised on 2017. Imm gran pct 0.0 % [facility] Comment: Interpretive Data Percent cell count reference ranges are not reported, since discordance with absolute values may lead to misinterpretation of CBC data. Current Interpretive Data was last revised on 2017. Lymphocyte pct 40.9 % [facility] Comment: Interpretive Data Percent cell count reference ranges are not reported, since discordance with absolute values may lead to misinterpretation of CBC data. Current Interpretive Data was last revised on 2017. Monocyte pct 7.1 % [facility] Comment: Interpretive Data Percent cell count reference ranges are not reported, since discordance with absolute values may lead to misinterpretation of CBC data. Current Interpretive Data was last revised on 2017. Eosinophil pct 3.5 % [facility] Comment: Interpretive Data Percent cell count reference ranges are not reported, since discordance with absolute values may lead to misinterpretation of CBC data. Current Interpretive Data was last revised on 2017. Basophil pct 0.7 % [facility] Comment: Interpretive Data Percent cell count reference ranges are not reported, since discordance with absolute values may lead to misinterpretation of CBC data. Current Interpretive Data was last revised on 2017. Blood 12/30/2024 1:13 PM CDT 12/30/2024 1:16 PM CDT Godfrey Pascal DO LAB BLOOD ORDERABLES Final Result [facility] [address] [facility] [place] [address] * (ABNORMAL) CBC with auto differential (12/30/2024 1:13 PM CDT) WBC 8.07 3.80 - 9.90 K/cumm Hgb 13.8 13.0 - 17.5 g/dL [facility] Hct 42.6 38.9 - 50.3 % [facility] Plt 309 150 - 400 K/cumm [facility] MPV 9.7 9.1 - 12.3 fL [facility] RBC 5.19 4.30 - 5.80 M/cumm [facility] MCV 82.1 81.3 - 96.4 fL [facility] MCH 26.6(L) 27.1 - 33.3 pg [facility] MCHC 32.4 32.3 - 35.7 g/dL [facility] RDW CV 15.0(H) 11.1 - 14.9 % [facility] RDW SD 45.0 35.7 - 48.1 fL [facility] NRBC abs 0.00 0.00 - 0.01 K/cumm [facility] Blood Venous blood specimen / Unknown 12/30/2024 1:13 PM CDT 12/30/2024 1:16 PM CDT Godfrey Pascal LAB BLOOD ORDERABLES Final Result Performing Organization Address City/[facility] Co de Phone Number [phone] [address] * Lipase (12/30/2024 1:13 PM CDT) [facility] Lipase 46 10 - 99 Units/L Blood Venous blood specimen / Unknown 12/30/2024 1:13 PM CDT 12/30/2024 1:16 PM CDT Godfrey Pascal LAB BLOOD ORDERABLES Final Result Performing Organization Address [facility] Phone Number [address] [address] * (ABNORMAL) Comprehensive metabolic panel (12/30/2024 1:13 PM CDT) [facility] Sodium 136 135 - 145 mmol/L Potassium, pl 4.3 3.3 - 4.9 mmol/L [facility] Comment:Hemolyzed; Potassium value may be falsely elevated by as much as 1.0 mmol/L. Suggest redraw and reanalysis. Chloride 100 97 - 110 mmol/L [facility] CO2 27 22 - 32 mmol/L [facility] Anion gap 9 2 - 15 mmol/L [facility] BUN 12 6 - 25 mg/dL [facility] Creatinine 0.68(L) 0.80 - 1.30 mg/dL [facility] Glucose 95 70 - 199 mg/dL [facility] Comment: Interpretive Data Fasting glucose >/= 126 [...] classification and Diagnosis of Diabetes Diabetes Care 2021; 46: S19-S40. Current interpretive data was last revised 2022. Calcium 9.3 8.5 - 10.3 mg/dL [facility] Bilirubin, total 0.2 0.1 - 1.2 mg/dL [facility] Protein, pl 7.1 6.5 - 8.5 g/dL [facility] Albumin 4.2 3.5 - 5.0 g/dL [facility] Alk phos 92 40 - 130 Units/L [facility] ALT 14 7 - 55 Units/L [facility] AST 23 10 - 50 Units/L [facility] Blood 12/30/2024 1:13 PM CDT 12/30/2024 1:16 PM CDT Godfrey Pascal DO LAB BLOOD ORDERABLES Final Result Performing Organization Address City/State/[facility] Co de Phone Number GRANT [address] [facility] [place] [address] from Last 3 Months [facility] Care Teams Allied Health Instructor Relationship Specialty Start Date End Date Bret Trammell DO [address] [place] [id number] PCP - General Family Medicine 12/30/24
--- OUTSIDE RECORDS SUMMARY | 2025-01-21 10:45 | XMS_ITS | Encounter Summary ---
Author Organization [facility] Address [address] [place] [address] Care Team Providers Care Drafting Layout Man Name Role Phone Unavailable Primary Care Provider Unavailabl e Reason for Visit * Reason Onset Date Comments Urinnary tract infection, pr ostrate abcess 05/23/2020 Left nurses # on pager for o n call Encounter Details Date Type Department Care Team (Late st Contact Info) Description 05/23/2020 Telephone [facility] Admitting [address] [place] [address] Sylvain Monahan MD [address] [place] [address] Urinnary tract infection, prostrate abcess (Left nurses # on pager for air transportation provider) Social History Tobacco Use Types Packs/Day Years Used Date Smoking Tobacco: Every Day Cigarettes Smokeless Tobacco: Never Alcohol Use Standard Drinks/Week Comments Not Currently 0 (1 standard drink = 0.6 oz pur e alcohol) Sex and Gender Information Value Date Recorded Sex Assigned at Not on file Legal Sex Male 9:03 AM CARBON ACCOUNTANT Gender Identity Not on file Sexual Orientation Not on file COVID-19 Exposure Response Date Recorded In the last month, have you been in contact with someone who was confirmed or suspected to have Coronavirus / COVID-19? No / Unsure 05/22/2020 9:04 AM CARBON ACCOUNTANT documented as of this encounter Plan of Treatment Not on file documented as of this encounter Visit Diagnoses Not on filedocumented in this encounter
--- OUTSIDE RECORDS SUMMARY | 2025-01-21 10:45 | XMS_ITS | Encounter Summary ---
Author Organization [facility] Address [address] [place] [address] Care Team Providers Care Language Assistant Name Role Phone Unavailable Primary Care Provider Unavailabl e Reason for Visit * Reason Onset Date Comments Bacteremia, needs ARABELLA 05/25/2020 Spoke with Christa at Dr. Ayala's exchange Encounter Details Date Type Department Care Team (Late st Contact Info) Description 05/25/2020 Telephone [facility] Admitting [address] [place] [address] Sylvain Monahan MD [address] [place] [address] Bacteremia, needs ARABELLA (Spoke with Christa at Dr. Ayala's exchange) Social History Tobacco Use Types Packs/Day Years Used Date Smoking Tobacco: Every Day Cigarettes Smokeless Tobacco: Never Alcohol Use Standard Drinks/Week Comments Not Currently 0 (1 standard drink = 0.6 oz pur e alcohol) Sex and Gender Information Value Date Recorded Sex Assigned at Not on file Legal Sex Male 9:03 AM STRAW BALER Gender Identity Not on file Sexual Orientation Not on file COVID-19 Exposure Response Date Recorded In the last month, have you been in contact with someone who was confirmed or suspected to have Coronavirus / COVID-19? No / Unsure 05/22/2020 9:04 AM STRAW BALER documented as of this encounter Plan of Treatment Not on file documented as of this encounter Visit Diagnoses Not on filedocumented in this encounter
[2025-01-21 11:38] VITALS: BP 142/87; PULSE 79; RESP 17; TEMP 36.6; O2SAT 100
--- OUTSIDE RECORDS SUMMARY | 2025-01-21 12:44 | XMS_ITS | Clinical Summary ---
Author Organization [facility] Address [address] [place] [address] Care Team Providers Care Medical Field Representative Name Role Phone RachidMaryam pittman Acacia GONZALEZ-SITE INSPECTOR Primary Care Provider [phone] Source Comments [facility],non-owned Affiliates and Associated Physician Practices is amultiple site organization consisting of ambulatory clinics and hospital sitesin [place], [place], [place] and [place]. This disclosure is being madepursuant to the Care Everywhere program and may not contain all information available regarding this patient. Last updated 18.[facility] Allergies Active Allergy Reactions Criticality Noted Date [...] Brother 2 Alive Brother 3 Alive In long-term at [facility] (07/25) Brother 4 Alive Father 76 Mother [...] Recorded Patient Health Questionnaire-2 Score 6 07/19/2024 [facility] - [...] any time in the past 12 m [facility], were you homeless or living in a detention (including now)? Yes 07/19/2024 Sex and Gender Information Value Date Recorded Sex Assigned at Not on file Legal Sex Male 5:38 AM DISPUTE COORDINATOR Gender Identity Not on file Sexual Orientation Not on file Occupation Industry Job Start Date Job End Date Unemployed Not on file Not on file Not on file Last Filed Vital Signs Vital Sign Reading Time Taken Comments Blood Pressure 109/66 07/31/2024 7:26 AM DISPUTE COORDINATOR Pulse 71 07/31/2024 8:12 AM DISPUTE COORDINATOR Temperature 36.5 C (97.7 F) 07/31/2024 7:26 AM DISPUTE COORDINATOR Respiratory Rate 18 07/31/2024 8:12 AM DISPUTE COORDINATOR Oxygen Saturation 99% 07/31/2024 8:12 AM DISPUTE COORDINATOR Inhaled Oxygen Concentration 21% 07/30/2024 8 :22 PM DISPUTE COORDINATOR Weight 88.5 kg (195 lb) 07/19/2024 3:03 PM DISPUTE COORDINATOR Height 175.3 cm (5' 9) 07/19/2024 3:03 PM DISPUTE COORDINATOR Body Mass Index 28.8 07/19/2024 3:03 PM DISPUTE COORDINATOR Plan of Treatment Health Maintenance Due Date [...] Comments HEMOGLOBIN A1C Routine 07/21/2024 6:13 AM DISPUTE COORDINATOR LIPID PROFILE Routine 07/21/2024 6:13 AM DISPUTE COORDINATOR HEPATITIS SCREEN ACUTE STAT 07/19/2024 10:09 AM DISPUTE COORDINATOR HIV-1 HIV-2 ANTIBODY + HIV P24 AG PANEL Routine 02/03/2022 10:55 AM CDT Chronic hepatitis C without hepatic coma from Last 3 Months or Most Recently Relevant to Health Maintenance Results * HEMOGLOBIN A1C (07/21/2024 6:13 AM DISPUTE COORDINATOR) [facility] Hemoglobin A1c 5.5 4.2 - 5.6 % 07/21/2024 6:34 AM DISPUTE COORDINATOR [facility] Estimated Average Glucose 111 mg/dL 07/21/2024 6:34 AM [facility] Blood BLOOD SPECIMEN / Unknown Lab Venipuncture / Unknown 07/21/2024 6:13 AM DISPUTE COORDINATOR 07/21/2024 6:16 AM DISPUTE COORDINATOR Narrative [facility] - 07/21/2024 6:34 AM DISPUTE COORDINATOR HbA1c Interpretation: Normal: < 5.7% Pre-diabetes: 5.7-6.4% [...] Standardization Program (NGSP) certified method. Kemar Herrera BEREAVEMENT COUNSELOR-SITE INSPECTOR LAB - CHEMISTRY ORDERAB LES Final Result [facility] [address] * (ABNORMAL) LIPID PROFILE (07/21/2024 6:13 AM [facility]) [facility] Cholesterol 130 <200 mg/dL 07/23/2024 12:47 AM [facility] Triglycerides 138 <150 mg/dL 07/23/2024 12:47 AM [facility] HDL Cholesterol 27(L) >40 mg/dL 12:47 AM [facility] Chol HDL Ratio 4.8 1.0 - 6.0 07/23/2024 12:47 AM [facility] LDL Calculated 75 65 - 130 mg/dL 07/23/2024 12:47 AM [facility] VLDL Calculated 28 <=30 mg/dL 12:47 AM [facility] Blood BLOOD SPECIMEN / Unknown Lab Venipuncture / Unknown 07/21/2024 6:13 AM DISPUTE COORDINATOR 07/23/2024 12:33 AM [facility] - 07/23/2024 12:47 AM [facility] Lipid Profile Comment: CHOLESTEROL LEVEL..................CLINICAL INTERPRETATION LESS [...] 9.5 ...................... 7.0 3X AVERAGE...................>23........................>11 Kemar Herrera BEREAVEMENT COUNSELOR-SITE INSPECTOR LAB - CHEMISTRY ORDERAB LES Final Result [facility] [address] * (ABNORMAL) HEPATITIS SCREEN ACUTE (07/19/2024 10:09 AM DISPUTE COORDINATOR) HAV Antibody IgM Non Reactive Non Reactive 07/19/2024 3:21 PM DISPUTE COORDINATOR [facility] HBsAg Non Reactive Non Reactive 07/19/2024 3:21 PM [facility] HBc Antibody IgM Non Reactive Non Reactive 07/19/2024 3:21 PM DISPUTE COORDINATOR [facility] HCV Antibody Screen REACTIVE(A) Non Reactive 07/19/2024 3:21 PM [facility] Comment:rechecked Blood BLOOD SPECIMEN / Unknown Venipuncture / Unknown 07/19/2024 10:09 AM DISPUTE COORDINATOR 07/19/2024 10:[address] [facility] - 07/19/2024 3:21 PM DISPUTE COORDINATOR A reactive result is consistent with current [...] CHEMISTRY ORDERABLES Final Result Performing Organization Address [facility] de Phone Number [facility] [address] * HIV-1 HIV-2 ANTIBODY + HIV P24 AG PANEL (02/03/2022 10:55 AM CDT) HIV1/2 Ab + P24 Ag NON-REACTI VE/NEGATIV E NON-REACTI VE/NEGATIV E 02/03/2022 11:46 AM CDT [facility] Blood BLOOD SPECIMEN / Unknown Venipuncture / Unknown 02/03/2022 10:55 AM CDT 02/03/2022 11:02 AM CDT Shay Cortés MD LAB - CHEMISTRY ORDERABLES Final Result Performing Organization Address [facility] de Phone Number [facility] [address] from Last 3 Months or Most Recently Relevant to Health Maintenance Additional Health Concerns 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/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 Comment:201707/24/2024 07/24/2024 Insurance * Guarantor: KERLINE WARD Account Type Relation to Patient Date of Phone Billing Address Personal/Family 1985 [address] [facility] Advance Directives Documents on File Type Date Recorded 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
--- OUTSIDE RECORDS SUMMARY | 2025-01-21 12:44 | XMS_ITS | Clinical Summary ---
Author Organization [facility] [address] [place] [id number] Care Team Providers Care Apartment Leasing Manager Name Role Phone Bret Trammell DO Primary Care Provider [phone] Allergies Active Allergy Reactions Criticality Noted Date [...] CDT - 12/30/2024 7:14 PM CDT Emergency [address] [address] Constipation, unspecified constipation type (Primary Dx) Discharge [...] on file Legal Sex Male 1:51 PM CUSTOMS PATROL OFFICER Gender Identity Not on file Sexual Orientation [...] 63.5 kg (140 lb) 08/13/2014 10:09 AM CUSTOMS PATROL OFFICER Height 175.3 cm (5' 9) 12/30/2024 12:40 PM CDT Body Mass Index 20.67 08/13/2014 10:09 AM CUSTOMS PATROL OFFICER Plan of Treatment Health Maintenance Due Date [...] by Reno Sunshine M.D. T: Report ID: [id number] Reading Location: [place] [address] Procedure Note Reno Sunshine, DO - 12/30/2024 [...] by Reno Sunshine M.D. T: Report ID: [id number] Reading Location: [id number] [facility] Pascal DO LAB BLOOD ORDERABLES Final Result [facility] [address] [facility] Department [place] [address] * Differential, auto (12/30/2024 1:13 PM CDT) [facility] Neutrophil abs 3.86 1.50 - 6.50 K/cumm Imm gran abs 0.00 0.00 - 0.10 K/cumm [facility] Lymphocyte abs 3.30 0.80 - 3.30 K/cumm [facility] Monocyte abs 0.57 0.20 - 0.80 K/cumm [facility] Eosinophil abs 0.28 0.00 - 0.50 K/cumm [facility] Basophil abs 0.06 0.00 - 0.10 K/cumm [facility] Neutrophil pct 47.8 % [facility] Comment: Interpretive Data Percent cell count reference ranges are not reported, since discordance with absolute values may lead to misinterpretation of CBC data. Current Interpretive Data was last revised on 2017. Imm gran pct 0.0 % [facility] Comment: Interpretive Data Percent cell count reference ranges are not reported, since discordance with absolute values may lead to misinterpretation of CBC data. Current Interpretive Data was last revised on 2017. Lymphocyte pct 40.9 % [facility] Comment: Interpretive Data Percent cell count reference ranges are not reported, since discordance with absolute values may lead to misinterpretation of CBC data. Current Interpretive Data was last revised on 2017. Monocyte pct 7.1 % [facility] Comment: Interpretive Data Percent cell count reference ranges are not reported, since discordance with absolute values may lead to misinterpretation of CBC data. Current Interpretive Data was last revised on 2017. Eosinophil pct 3.5 % [facility] Comment: Interpretive Data Percent cell count reference ranges are not reported, since discordance with absolute values may lead to misinterpretation of CBC data. Current Interpretive Data was last revised on 2017. Basophil pct 0.7 % [facility] Comment: Interpretive Data Percent cell count reference ranges are not reported, since discordance with absolute values may lead to misinterpretation of CBC data. Current Interpretive Data was last revised on 2017. Blood 12/30/2024 1:13 PM CDT 12/30/2024 1:16 PM CDT us Godfrey Pascal DO LAB BLOOD ORDERABLES Final Result [facility] [address] Department of Laboratories [place], [place] [id number] * (ABNORMAL) CBC with auto differential (12/30/2024 1:13 PM CDT) WBC 8.07 3.80 - 9.90 K/cumm Hgb 13.8 13.0 - 17.5 g/dL [facility] Hct 42.6 38.9 - 50.3 % [facility] Plt 309 150 - 400 K/cumm [facility] MPV 9.7 9.1 - 12.3 fL [facility] RBC 5.19 4.30 - 5.80 M/cumm [facility] MCV 82.1 81.3 - 96.4 fL [facility] MCH 26.6(L) 27.1 - 33.3 pg [facility] MCHC 32.4 32.3 - 35.7 g/dL [facility] RDW CV 15.0(H) 11.1 - 14.9 % [facility] RDW SD 45.0 35.7 - 48.1 fL [facility] NRBC abs 0.00 0.00 - 0.01 K/cumm [facility] Blood Venous blood specimen / Unknown 12/30/2024 1:13 PM CDT 12/30/2024 1:16 PM CDT Godfrey Pascal LAB BLOOD ORDERABLES Final Result Performing Organization Address [facility] Co de Phone Number [address] [place] [address] * Lipase (12/30/2024 1:13 PM CDT) [facility] Lipase 46 10 - 99 Units/L Blood Venous blood specimen / Unknown 12/30/2024 1:13 PM CDT 12/30/2024 1:16 PM CDT Godfrey Pascal LAB BLOOD ORDERABLES Final Result Performing Organization Address [facility] Phone Number [address] [place] [address] * (ABNORMAL) Comprehensive metabolic panel (12/30/2024 1:13 PM CDT) [facility] Sodium 136 135 - 145 mmol/L Potassium, pl 4.3 3.3 - 4.9 mmol/L [facility] Comment:Hemolyzed; Potassium value may be falsely elevated by as much as 1.0 mmol/L. Suggest redraw and reanalysis. Chloride 100 97 - 110 mmol/L [facility] CO2 27 22 - 32 mmol/L [facility] Anion gap 9 2 - 15 mmol/L [facility] BUN 12 6 - 25 mg/dL [facility] Creatinine 0.68(L) 0.80 - 1.30 mg/dL [facility] Glucose 95 70 - 199 mg/dL [facility] Comment: Interpretive Data Fasting glucose >/= 126 [...] 2022. Calcium 9.3 8.5 - 10.3 mg/dL [facility] Bilirubin, total 0.2 0.1 - 1.2 mg/dL [facility] Protein, pl 7.1 6.5 - 8.5 g/dL [facility] Albumin 4.2 3.5 - 5.0 g/dL [facility] Alk phos 92 40 - 130 Units/L [facility] ALT 14 7 - 55 Units/L [facility] AST 23 10 - 50 Units/L [facility] Blood 12/30/2024 1:13 PM CDT 12/30/2024 1:16 PM CDT Godfrey Pascal DO LAB BLOOD ORDERABLES Final Result Performing Organization Address City/State/[facility] Co de Phone Number GRANT [address] Department [place] [address] from Last [address] [place] [address] [address] [place] [address] Care Teams Apartment Leasing Manager Relationship Specialty Start Date End Date Bret Trammell DO [address] [place] [address] PCP - General Family Medicine 12/30/24
--- OUTSIDE RECORDS SUMMARY | 2025-01-21 12:44 | XMS_ITS | Referral Summary ---
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 T: Report ID: [id number] Reading Location: [place] [address] Procedure Note Reno Sunshine, - 12/30/2024 EXAM [...] by Reno Sunshine M.D. T: Report ID: [id number] Reading Location: [place] [address] [facility] Pascal DO LAB BLOOD ORDERABLES Final Result [place] [address] [facility] Department [place] [address] * Differential, auto (12/30/2024 1:13 PM CDT) Neutrophil abs 3.86 1.50 - 6.50 K/cumm Imm gran abs 0.00 0.00 - 0.10 K/cumm [facility] Lymphocyte abs 3.30 0.80 - 3.30 K/cumm [facility] Monocyte abs 0.57 0.20 - 0.80 K/cumm [facility] Eosinophil abs 0.28 0.00 - 0.50 K/cumm [facility] Basophil abs 0.06 0.00 - 0.10 K/cumm [facility] Neutrophil pct 47.8 % [facility] Comment: Interpretive Data Percent cell count reference ranges are not reported, since discordance with absolute values may lead to misinterpretation of CBC data. Current Interpretive Data was last revised on 2017. Imm gran pct 0.0 % [facility] Comment: Interpretive Data Percent cell count reference ranges are not reported, since discordance with absolute values may lead to misinterpretation of CBC data. Current Interpretive Data was last revised on 2017. Lymphocyte pct 40.9 % [facility] Comment: Interpretive Data Percent cell count reference ranges are not reported, since discordance with absolute values may lead to misinterpretation of CBC data. Current Interpretive Data was last revised on 2017. Monocyte pct 7.1 % [facility] Comment: Interpretive Data Percent cell count reference ranges are not reported, since discordance with absolute values may lead to misinterpretation of CBC data. Current Interpretive Data was last revised on 2017. Eosinophil pct 3.5 % [facility] Comment: Interpretive Data Percent cell count reference ranges are not reported, since discordance with absolute values may lead to misinterpretation of CBC data. Current Interpretive Data was last revised on 2017. Basophil pct 0.7 % [facility] Comment: Interpretive Data Percent cell count reference ranges are not reported, since discordance with absolute values may lead to misinterpretation of CBC data. Current Interpretive Data was last revised on 2017. Blood 12/30/2024 1:13 PM CDT 12/30/2024 1:16 PM CDT Godfrey Pascal DO LAB BLOOD ORDERABLES Final Result [facility] [address] [facility] Department [place] [address] * (ABNORMAL) CBC with auto differential (12/30/2024 1:13 PM CDT) WBC 8.07 3.80 - 9.90 K/cumm Hgb 13.8 13.0 - 17.5 g/dL [facility] Hct 42.6 38.9 - 50.3 % [facility] Plt 309 150 - 400 K/cumm [facility] MPV 9.7 9.1 - 12.[address] [facility] RBC 5.19 4.30 - 5.80 M/cumm [facility] MCV 82.1 81.3 - 96.[address] [facility] MCH 26.6(L) 27.1 - 33.[address] [facility] MCHC 32.4 32.3 - 35.7 g/dL [facility] RDW CV 15.0(H) 11.1 - 14.9 % [facility] RDW SD 45.0 35.7 - 48.[address] [facility] NRBC abs 0.00 0.00 - 0.01 K/cumm [facility] Blood Venous blood specimen / Unknown 12/30/2024 1:13 PM CDT 12/30/2024 1:16 PM CDT Godfrey Pascal LAB BLOOD ORDERABLES Final Result Performing Organization Address [facility] Co de Phone Number [address] [address] * Lipase (12/30/2024 1:13 PM CDT) [facility] Lipase 46 10 - 99 Units/L Blood Venous blood specimen / Unknown 12/30/2024 1:13 PM CDT 12/30/2024 1:16 PM CDT Godfrey Pascal LAB BLOOD ORDERABLES Final Result Performing Organization Address [facility] Phone Number [address] [address] * (ABNORMAL) Comprehensive metabolic panel (12/30/2024 1:13 PM CDT) [facility] Sodium 136 135 - 145 mmol/L Potassium, pl 4.3 3.3 - 4.9 mmol/L [facility] Comment:Hemolyzed; Potassium value may be falsely elevated by as much as 1.0 mmol/L. Suggest redraw and reanalysis. Chloride 100 97 - 110 mmol/L [facility] CO2 27 22 - 32 mmol/L [facility] Anion gap 9 2 - 15 mmol/L [facility] BUN 12 6 - 25 mg/dL [facility] Creatinine 0.68(L) 0.80 - 1.30 mg/dL [facility] Glucose 95 70 - 199 mg/dL [facility] Comment: Interpretive Data Fasting glucose >/= [...] 2022. Calcium 9.3 8.5 - 10.3 mg/dL [facility] Bilirubin, total 0.2 0.1 - 1.2 mg/dL [facility] Protein, pl 7.1 6.5 - 8.5 g/dL [facility] Albumin 4.2 3.5 - 5.0 g/dL [facility] Alk phos 92 40 - 130 Units/L [facility] [place] ALT 14 7 - 55 Units/L [facility] AST 23 10 - 50 Units/L [facility] Blood 12/30/2024 1:13 PM CDT 12/30/2024 1:16 PM CDT Godfrey Pascal DO LAB BLOOD ORDERABLES Final Result Performing Organization Address City/State/[facility] Co de Phone Number GRANT [address] [facility] Department [place] [address] from Last 3 Months [facility] Care Teams Tank Operator Relationship Specialty Start Date End Date Bret Trammell DO [address] [place] [address] PCP - General Family Medicine 12/30/24
--- NOTE | 2025-01-21 13:24 | ED.GENADULT ---
HPI - General Adult General Chief complaint: Unspecified Stated complaint: requesting seizure medication refill Time Seen by Provider: 01/21/25 12:34 History of Present Illness HPI narrative: Patient is a 39-year-old male who presents to the ER with request for medication refill. He has had Klonopin prescribed to him for years but he has not had access over last month. He thinks he is having seizures because he does not have access to it. Reports 2 seizures in last 24 hours. Patient does have a known seizure disorder and takes Keppra. He has established care with Dr. Felix and will be seen at the in the month. No fevers or chills. No chest pain. No other complaints. Related Data Allergies Allergy/AdvReac Type Severity Reaction Status Date / Time Sulfa (Sulfonamide Allergy Vomiting Verified 01/21/25 11:38 Antibiotics) Review of Systems Review of Systems: All systems reviewed & are unremarkable except as noted in HPI and below Constitutional: Constitutional: Reports no additional constitutional complaints ENT: Reports system reviewed and no additional complaints, except as documented Cardiovascular: Cardiovascular: Reports no additional cardiovascular complaints Respiratory: Respiratory: Reports no additional respiratory complaints Gastrointestinal: Gastrointestinal: Reports no additional gastrointestinal complaints Neurologic: Reports system reviewed and no additional complaints, except as documented [facility] Past Medical History Medical History (Updated 01/21/25 @ 13:31 by Godfrey Davis MD) Seizure disorder Exam Narrative: GENERAL: Well-appearing, well-nourished, and in no acute distress. HEAD: Normocephalic, atraumatic. ENT: Mucous membranes moist. CHEST: Clear to auscultation. No respiratory distress. HEART: Regular rate and rhythm. Normal peripheral pulses. EXTREMITIES: Normal range of motion. No edema. NEURO: Alert and oriented x3. PSYCH: Normal mood and affect. Course Course Emergency Course: Patient resting comfortably. Calm and cooperative. Will give a small supply of Klonopin. Do not feel comfortable giving him 4 mg a day that he had been taking previously and will give him 1 mg to take twice a day. Vital Signs Vital signs: Vital Signs Temperature 97.6 F 01/21/25 10:45 Pulse Rate 92 01/21/25 10:45 Respiratory Rate 16 01/21/25 10:45 Blood Pressure 133/92 H 01/21/25 10:45 Pulse Oximetry 98 01/21/25 10:45 Oxygen Delivery Room Air 01/21/25 10:45 Temperature 97.9 F 01/21/25 11:38 Pulse Rate 79 01/21/25 11:38 Respiratory Rate 17 01/21/25 11:38 Blood Pressure 142/87 H 01/21/25 11:38 Pulse Oximetry 100 01/21/25 11:38 Oxygen Delivery Room Air 01/21/25 11:38 Medical Decision Making Vital Signs Vital Signs: Vital Signs Temperature 97.6 F 01/21/25 10:45 Pulse Rate 92 01/21/25 10:45 Respiratory Rate 16 01/21/25 10:45 Blood Pressure 133/92 H 01/21/25 10:45 Pulse Oximetry 98 01/21/25 10:45 Oxygen Delivery Room Air 01/21/25 10:45 Temperature 97.9 F 01/21/25 11:38 Pulse Rate 79 01/21/25 11:38 Respiratory Rate 17 01/21/25 11:38 Blood Pressure 142/87 H 01/21/25 11:38 Pulse Oximetry 100 01/21/25 11:38 Oxygen Delivery Room Air 01/21/25 11:38 Discharge Plan Discharge Clinical Impression: Medication refill Patient Disposition: Home Condition: Stable Instructions: Medicine Refill (ED) Additional Instructions: Return ER if you have chest pain shortness of breath, you cannot keep down food water, you lose consciousness, or have additional concerns. Patient Language: Malay Prescriptions: New clonazepam [Klonopin] 1 mg tablet 1 mg PO BID Qty: 14 0RF Follow-up/Referrals: Sudha Felix DO [Primary Care Provider] - 1 Week
[2025-01-21 13:49] VITALS: BP 138/79; PULSE 70; RESP 15; TEMP 36.5; O2SAT 99
== END 2025-01-21 13:50 | disposition home or self-care (01) ==
PROVIDERS: Emergency Provider Emergency Medicine; PCP Family Medicine
DX: Z76.0 Encounter for issue of repeat prescription (principal); G40.909 Epilepsy, unspecified, not intractable, without status epilepticus
CPT/HCPCS: 99281